=== PATIENT | male | born 1945 | race Caucasian/White ===

== ENCOUNTER 2018-01-07 06:29 | Day surgery (SDC) | payer OTHER, MEDICARE ==
[2018-01-03 11:43] LABS: BASOPHILS # (AUTO) 0.1 X10'3 (0-0.2); BASOPHILS % (AUTO) 1.1 % (0-1); EOSINOPHILS # (AUTO) 0.7 X10'3 (0-0.9); EOSINOPHILS % (AUTO) 7.5 % (0-6); LYMPHOCYTES # (AUTO) 1.8 X10'3 (1.1-4.8); LYMPHOCYTES % (AUTO) 19.7 % (21-51); MEAN CORPUSCULAR HGB CONC 34.6 % (33.0-36.5); MEAN CORPUSCULAR VOLUME 98.3 FL (78-98); MEAN PLATELET VOLUME 7.6 FL (7.4-10.4); MONOCYTES # (AUTO) 1.1 X10'3 (0-0.9); NEUTROPHILS # (AUTO) 5.4 X10'3 (1.8-7.7); NEUTROPHILS % (AUTO) 59.7 % (42-75); PRE OP HEMATOCRIT 37.4 % (42.0-52.0); PRE OP HEMOGLOBIN 12.9 g/dL (14.0-17.9); PRE OP PLATELET COUNT 190 X10'3 (140-440); RED BLOOD COUNT 3.81 X10'6 (4.70-6.10)
[2018-01-03 11:56] LABS: ALBUMIN 3.4 G/DL (3.4-5.0); ALBUMIN/GLOBULIN RATIO 0.9 (1.1-1.5); ALKALINE PHOSPHATASE 66 IU/L (46-116); BLOOD UREA NITROGEN 13 MG/DL (7-18); BUN/CREATININE RATIO 12.4 (5.4-32.0); CALCIUM 8.8 MG/DL (8.5-10.1); CHLORIDE 101 MMOL/L (99-107); CREATININE 1.05 MG/DL (0.60-1.10); PRE OP ALT 56 U/L (30-65); PRE OP ANION GAP 8 (8-16); PRE OP AST 53 U/L (10-37); PRE OP BILIRUB, TOTAL 0.5 MG/DL (0.0-1.0); PRE OP GLUCOSE 119 MG/DL (70-104); PRE OP SODIUM 135 MMOL/L (135-145); TOTAL CARBON DIOXIDE 25.6 MMOL/L (24-32); TOTAL PROTEIN 7.3 G/DL (6.4-8.2); eGFR 70 ML/MIN
[2018-01-07] VITALS (8 sets, daily range): BP systolic 128–144; BP diastolic 52–79
[~2018-01-07] VITALS: Ht 182.9 cm; Wt 134.6 kg
[~2018-01-07 06:29] MED LIST: AMLO10TA PO; ATOR40TA PO; CETI-136 PO; GABA-532 PO; GUAI400T13 PO; INSU100V30 SQ; LANTUS SQ; LIDOcaine 1% (10mg/ml) 2ml vial ONE; LOSA50TA3 PO; METF500T PO; cefazolin/dext.iso 2gm/50ml 50 ML IV ONE; famotidine 20mg tablet PO ONE; ringers solution, lacted 1,000 ML IV SCH
[2018-01-07] MEDS ORDERED: ROPIVAcaine 0.5% (5mg/ml) 30ml vial ONE (06:40)
[2018-01-07] MEDS ORDERED: LIDOcaine 0.5% (5mg/ml) 50ml vial ONE (07:08)
[2018-01-07] MEDS ORDERED: fentaNYL/PF 50MCG/1 ML 2ML syringe ONE ×2 (07:12→07:27)
[2018-01-07] MEDS ORDERED: MIDAZolam 5mg/5ml vial ONE (07:13)
[2018-01-07] MEDS ORDERED: propofol inj 20 ML IV ONE (07:40)
[2018-01-07] MEDS ORDERED: morphine 4 MG/ML inj SYRINge IV PRN (07:50)
[2018-01-07] MEDS ORDERED: HYDROmorphone inj. 0.5 MG/0.5 ML DISP.SYRIN IV PRN ×2 (07:50)
[2018-01-07] MEDS ORDERED: ondansetron/PF 4mg/2ml inj IV PRN (07:50)
[2018-01-07] MEDS ORDERED: ringers solution, lacted 1,000 ML IV SCH (07:50)
[2018-01-07] MEDS ORDERED: morphine /PF 1mg/ml 10ml inj. ONE (08:28)
[2018-01-07] MEDS ORDERED: morphine 10mg/ml inj. ONE (08:28)
[2018-01-07] MEDS ORDERED: HYDROmorphone 1 mg/ml syringe ONE (08:42)
[2018-01-07] MEDS ORDERED: HYDROmorphone 1 mg/ml syringe IV PRN (08:53)
[2018-01-07] MEDS: HYDROmorphone 1 mg/ml syringe IV PRN ×2 (08:57→09:14)
[2018-01-07] MEDS ORDERED: HYDROcodone/acetaminophen 10/325mg tab PO ONE (09:20)
== END 2018-01-07 09:40 | disposition home or self-care (01) ==
LOC: PAS 06:29
PROVIDERS: ATTEND Orthopaedic Surgery Hand Surgery
DX: M72.0 Palmar fascial fibromatosis [Dupuytren] (principal); M19.031 Primary osteoarthritis, right wrist; M65.341 Trigger finger, right ring finger; E66.9 Obesity, unspecified; E11.9 Type 2 diabetes mellitus without complications; I10 Essential (primary) hypertension; G47.33 Obstructive sleep apnea (adult) (pediatric); J44.9 Chronic obstructive pulmonary disease, unspecified; Z79.4 Long term (current) use of insulin; Z68.41 Body mass index [BMI] 40.0-44.9, adult; Z87.442 Personal history of urinary calculi; Z96.651 Presence of right artificial knee joint; Z79.891 Long term (current) use of opiate analgesic; Z79.84 Long term (current) use of oral hypoglycemic drugs; Z87.891 Personal history of nicotine dependence; Z79.899 Other long term (current) drug therapy; Z98.890 Other specified postprocedural states
CPT/HCPCS: 25800; 26055; 26121; 36415; 80053; 82948; 83036; 85025; 93005; A6402; A6449; C1713; J0690; J1170; J2001; J2250; J2270; J2405; J2704; J2795; J3010; J3490; J7120; A7000; J2274

== ENCOUNTER 2018-09-23 09:19 | Day surgery (SDC) | payer OTHER, MEDICARE ==
[2018-09-19 11:33] LABS: BASOPHILS % (AUTO) 0.3 % (0-1); EOSINOPHILS # (AUTO) 0.5 X10'3 (0-0.9); EOSINOPHILS % (AUTO) 5.7 % (0-6); LYMPHOCYTES # (AUTO) 1.4 X10'3 (1.1-4.8); LYMPHOCYTES % (AUTO) 14.4 % (21-51); MEAN CORPUSCULAR HEMOGLOBIN 33.7 PG (27.0-31.0); MEAN CORPUSCULAR HGB CONC 34.2 g/dL (33.0-36.5); MEAN CORPUSCULAR VOLUME 98.5 FL (78-98); MEAN PLATELET VOLUME 8.4 FL (7.4-10.4); MONOCYTES # (AUTO) 0.9 X10'3 (0-0.9); MONOCYTES % (AUTO) 9.9 % (2-12); NEUTROPHILS # (AUTO) 6.5 X10'3 (1.8-7.7); NEUTROPHILS % (AUTO) 69.7 % (42-75); PRE OP HEMATOCRIT 40.7 % (42.0-52.0); PRE OP HEMOGLOBIN 13.9 g/dL (14.0-17.9); PRE OP PLATELET COUNT 149 X10'3 (140-440); RED BLOOD COUNT 4.14 X10'6 (4.70-6.10); RED CELL DISTRIBUTION WIDTH 12.9 % (11.5-14.5)
[2018-09-19 11:35] LABS: HEMOGLOBIN A1C 6.6 % (4.5-6.2)
[2018-09-19 11:41] LABS: ALBUMIN 3.3 G/DL (3.4-5.0); ALBUMIN/GLOBULIN RATIO 0.9 (1.1-1.5); ALKALINE PHOSPHATASE 77 IU/L (46-116); BLOOD UREA NITROGEN 7 MG/DL (7-18); BUN/CREATININE RATIO 7.8 (5.4-32.0); CALCIUM 9.4 MG/DL (8.5-10.1); CHLORIDE 102 MMOL/L (99-107); PRE OP ALT 40 U/L (30-65); PRE OP ANION GAP 8 (8-16); PRE OP AST 28 U/L (10-37); PRE OP BILIRUB, TOTAL 0.6 MG/DL (0.0-1.0); PRE OP GLUCOSE 164 MG/DL (70-104); PRE OP POTASSIUM 4.1 MMOL/L (3.4-5.1); PRE OP SODIUM 139 MMOL/L (135-145); TOTAL CARBON DIOXIDE 28.9 MMOL/L (24-32); TOTAL PROTEIN 6.8 G/DL (6.4-8.2); eGFR 83 ML/MIN
[~2018-09-23] VITALS: Ht 182.9 cm; Wt 117.9 kg
[2018-09-23] VITALS (11 sets, daily range): BP systolic 145–179; BP diastolic 64–92
[~2018-09-23 09:19] MED LIST changes: +ALOG6.252 PO; -AMLO10TA PO; +BUPIVAcaine/PF 2.5mg/ml (0.25%) 10ml vial ONE; +HYDR-3972 PO; -INSU100V30 SQ; -LANTUS SQ; -LIDOcaine 1% (10mg/ml) 2ml vial ONE; -LOSA50TA3 PO; -METF500T PO; +ceFAZolin 2gm in dextrose, iso 100 ML IV ONE; -cefazolin/dext.iso 2gm/50ml 50 ML IV ONE
[2018-09-23] MEDS ORDERED: LIDOcaine 0.5% (5mg/ml) 50ml vial ONE (11:38)
[2018-09-23] MEDS ORDERED: fentaNYL /PF 50mcg/ml 5ml ampule ONE (11:40)
[2018-09-23] MEDS ORDERED: midazolam 2 mg/2 ml injection ONE ×2 (11:40→11:51)
--- NOTE | 2018-09-23 11:41 | NUR ---
pt has rash and pin pricks from a plant at his house, dr clark looked at it, will proceed with surgery. (rash on arms/hands bilat)
[2018-09-23] MEDS ORDERED: labetalol 20mg/4ml (5mg/ml) syringe IV ONE (12:07)
[2018-09-23] MEDS ORDERED: LIDOcaine 1%/PF 5ML 10 MG/ML VIAL ONE (12:07)
[2018-09-23] MEDS ORDERED: hydrALAZINE 20mg/ml inj. IV ONE (12:07)
[2018-09-23] MEDS ORDERED: propofol inj 20 ML IV ONE (12:07)
[2018-09-23] MEDS ORDERED: ondansetron/PF 4mg/2ml inj ONE (12:40)
[2018-09-23] MEDS ORDERED: ROPIVAcaine 0.5% (5mg/ml) 30ml vial ONE (12:43)
--- NOTE | 2018-09-23 12:53 | NUR ---
Received from OR via [facility], accompanied by Anesthesiologist DR SY and report given by Anesthesiologist. PT VERY DROWSY, NO S/S OF DISTRESS/DISCOMFORT. 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 Addendum: 09/23/18 at 1322 by Alice Christopher RN Amended: Links added.
[2018-09-23] MEDS ORDERED: ringers solution, lacted 1,000 ML IV SCH (13:11)
[2018-09-23] MEDS ORDERED: morphine 4 MG/ML inj SYRINge IV PRN (13:15)
[2018-09-23] MEDS ORDERED: ondansetron/PF 4mg/2ml inj IV PRN (13:15)
[2018-09-23] MEDS ORDERED: HYDROmorphone inj. 0.5 MG/0.5 ML DISP.SYRIN IV PRN ×2 (13:15)
== END 2018-09-23 14:33 | disposition home or self-care (01) ==
LOC: PAS 09:19
PROVIDERS: ATTEND Orthopaedic Surgery Hand Surgery
DX: T84.290A Other mechanical complication of internal fixation device of bones of hand and fingers, initial encounter (principal); M19.031 Primary osteoarthritis, right wrist; E66.9 Obesity, unspecified; E11.9 Type 2 diabetes mellitus without complications; Z98.890 Other specified postprocedural states; Z79.4 Long term (current) use of insulin; Y83.8 Other surgical procedures as the cause of abnormal reaction of the patient, or of later complication, without mention of misadventure at the time of the procedure
CPT/HCPCS: 25820; 36415; 80053; 82948; 83036; 85025; 93005; C1713; J0360; J0690; J1170; J2001; J2250; J2405; J2704; J3010; J3490; J7120; A6449; A7000; J2795

== ENCOUNTER 2019-09-10 11:12 | Emergency (ER) | payer MEDICARE, OTHER ==
[~2019-09-10] VITALS: Ht 182.9 cm; Wt 107.7 kg
[~2019-09-10 11:12] MED LIST changes: -BUPIVAcaine/PF 2.5mg/ml (0.25%) 10ml vial ONE; -ceFAZolin 2gm in dextrose, iso 100 ML IV ONE; -famotidine 20mg tablet PO ONE; -ringers solution, lacted 1,000 ML IV SCH
[2019-09-10] MEDS ORDERED: diphenhydrAMINE 50 mg/ml inj IM ONE (11:25)
[2019-09-10] MEDS ORDERED: haloperidol lactate 5mg/ml inj IM ONE (11:25)
[2019-09-10] MEDS ORDERED: LORazepam 2 mg/ml vial IM ONE (11:25)
--- NOTE | 2019-09-10 11:34 | NUR ---
Patient's behavior is agressive and unpredictable. Patient continues to be verbally agressive and is unable to calm down despite all best attempts to verbally de-escalate him. Addendum: 09/10/19 at 1853 by [facility] Tech had said to be watching him the whole time he went to restroom waiting for him to him come out of the restroom.
--- NOTE | 2019-09-10 11:46 | NUR ---
Spoke with pts , Loni on the phone. States pt is a daily drinker and has been combative at home, throwing things and threatening to hit her. Pt still making verbal threats to staff at this time and striking out. Dr. Renteria at bedside. Locked restraints placed x 4. Security at bedside.
[2019-09-10] MEDS ORDERED: normal saline 1000ML IV soln IVB ONE (11:50)
[2019-09-10] MEDS ORDERED: LORazepam 2 mg/ml vial IV ONE (11:50)
[2019-09-10] MEDS ORDERED: OXYC-511 PO (11:56)
[2019-09-10] MEDS ORDERED: MIDO2.5T14 PO (12:00)
[2019-09-10] MEDS ORDERED: POTA20TA19 PO (12:00)
[2019-09-10] MEDS ORDERED: INSU100I25 (12:00)
[2019-09-10 12:35] LABS: BASOPHILS # (AUTO) 0.1 X10'3 (0-0.2); BASOPHILS % (AUTO) 0.8 % (0-1); EOSINOPHILS # (AUTO) 0.1 X10'3 (0-0.9); EOSINOPHILS % (AUTO) 0.9 % (0-6); HEMATOCRIT 40.9 % (42.0-52.0); HEMOGLOBIN 13.7 g/dl (14.0-17.9); LYMPHOCYTES # (AUTO) 3.3 X10'3 (1.1-4.8); LYMPHOCYTES % (AUTO) 27.8 % (21-51); MEAN CORPUSCULAR HEMOGLOBIN 34.6 PG (27.0-31.0); MEAN CORPUSCULAR HGB CONC 33.4 g/dL (33.0-36.5); MEAN CORPUSCULAR VOLUME 103.5 FL (78-98); MEAN PLATELET VOLUME 7.1 FL (7.4-10.4); MONOCYTES % (AUTO) 8.7 % (2-12); NEUTROPHILS # (AUTO) 7.3 X10'3 (1.8-7.7); NEUTROPHILS % (AUTO) 61.8 % (42-75); PLATELET COUNT 266 X10'3 (140-440); RED BLOOD COUNT 3.95 X10'6 (4.70-6.10); RED CELL DISTRIBUTION WIDTH 15.3 % (11.5-14.5); WHITE BLOOD COUNT 11.8 X10'3 (4.5-11.0)
[2019-09-10 12:48] LABS: ALANINE AMINOTRANSFERASE 28 U/L (12-78); ALBUMIN 3.1 G/DL (3.4-5.0); ALBUMIN/GLOBULIN RATIO 0.8 (1.1-1.5); ALKALINE PHOSPHATASE 109 IU/L (46-116); ANION GAP 16 (8-16); ASPARTATE AMINO TRANSFERASE 55 U/L (10-37); BILIRUBIN,TOTAL 0.3 MG/DL (0.1-1.0); BLOOD UREA NITROGEN 17 MG/DL (7-18); BUN/CREATININE RATIO 13.3 (5.4-32.0); CALCIUM 8.6 MG/DL (8.5-10.1); CHLORIDE 103 MMOL/L (99-107); CREATININE 1.28 MG/DL (0.60-1.10); GLUCOSE 115 MG/DL (70-104); POTASSIUM 3.6 MMOL/L (3.5-5.1); SODIUM 142 MMOL/L (135-145); TOTAL CARBON DIOXIDE 22.9 MMOL/L (24-32); TOTAL PROTEIN 6.8 G/DL (6.4-8.2); eGFR 55 ML/MIN
[2019-09-10] MEDS: ALOGLIPTIN BENZOATE 6.25 MG PO SCH (12:50)
[2019-09-10] MEDS ORDERED: guaiFENesin 200 MG/10 ML oral syrup UD cup PO PRN (12:50)
[2019-09-10 12:56] LABS: CREATINE KINASE 125 U/L (39-308); ETHANOL 0.246 GM/DL (0.0-0.010)
[2019-09-10 12:57] LABS: ACETAMINOPHEN < 2.0 UG/ML (10-30)
[2019-09-10] MEDS: midodrine tablet 2.5 MG TABLET PO SCH ×2 (13:00→21:13)
[2019-09-10 13:13] LABS: CLARITY,URINE CLEAR (Clear); COLOR,URINE YELLOW (Yellow); GLUCOSE, URINE NEGATIVE (Neg); KETONES,URINE NEGATIVE (Neg); LEUKOCYTE ESTERASE ,URINE NEGATIVE (Neg); NITRITES, URINE NEGATIVE (Neg); OCCULT BLOOD,URINE NEGATIVE (Neg); PROTEIN,URINE NEGATIVE (Neg); UROBILINOGEN,URINE 0.2 E.U/dL (0.2-1.0)
[2019-09-10 13:16] LABS: UA COLLECTION TYPE STRAIGHT CATH
[2019-09-10 13:26] LABS: URINE AMPHETAMINE SCREEN NEGATIVE (Neg); URINE BARBITUATE SCREEN NEGATIVE (Neg); URINE BENZODIAZEPINES SCREEN NEGATIVE (Neg); URINE CANNABINOID SCREEN POSITIVE (Neg); URINE COCAINE SCREEN NEGATIVE (Neg); URINE METHADONE SCREEN NEGATIVE (Neg); URINE OPIATE SCREEN POSITIVE (Neg); URINE PHENCYCLIDINE SCREEN NEGATIVE (Neg)
--- NOTE | 2019-09-10 13:32 | NUR ---
relieving RN for break, pt is sleeping, resp even and unlabored,
--- NOTE | 2019-09-10 15:14 | NUR ---
PACKET FAXED TO [facility]
--- NOTE | 2019-09-10 16:04 | NUR ---
sleeping on right side
[2019-09-10] MEDS: gabapentin 300mg capsule PO SCH (16:08)
--- NOTE | 2019-09-10 17:23 | NUR ---
Patient ran across the room. Security called to help him back in bed. Fell when going to transfer back down to bed. PA notified no new orders no injuries noted.
--- NOTE | 2019-09-10 18:08 | NUR ---
in bed resting
--- NOTE | 2019-09-10 18:55 | NUR ---
Patient found outside by staff. Patient was last seen by the staff in the restroom at around 1819, at around the 1819 the patient in 24 came near the station was talking to the staff for 5-10 minutes. Patient was still beleived to using the restroom, he not seen coming out of the restroom. Later security came back with the patient at around 1826. Shelbie said she was watching patient from the monement he entered the restroom and was watching the area waiting for him to finish up and come out.
[2019-09-10] MEDS: oxyCODONE/APAP 10/325mg tablet PO PRN (19:28)
[2019-09-10] MEDS ORDERED: haloperidol 5mg tablet PO ONE (22:40)
[2019-09-10] MEDS ORDERED: LORazepam 1 MG tablet PO ONE (22:40)
[2019-09-10] MEDS ORDERED: diphenhydrAMINE 25mg capsule PO ONE (22:40)
--- NOTE | 2019-09-10 22:42 | NUR ---
Patient is awake, he exhibits anxiety and some agitation. Patient is requesting medications for that and sleep too. Neil Olivares is speaking with for orders.
--- NOTE | 2019-09-10 22:42 | NUR ---
Patient has been restless and is becoming more agitated. He shouts, "Wheres my fuckin' sleep aid? He told me he would get it earlier?" Spoke to Dr. Encarnacion regarding patient and condition. PO medications ordered. Spoke to primary RN Marvin about discussion with Dr. Encarnacion.
[2019-09-11] MEDS: LORazepam 1 MG tablet PO SCH ×2 (00:29→09:43)
[2019-09-11] MEDS: gabapentin 300mg capsule PO SCH ×2 (00:30→09:43)
[2019-09-11] MEDS ORDERED: diphenhydrAMINE 25mg capsule PO ONE (00:35)
--- NOTE | 2019-09-11 01:19 | NUR ---
relieving RN for break, pt is resting quietly on gurney
--- NOTE | 2019-09-11 02:19 | NUR ---
Patient is sleping quietly now in a low fowlers position in bed.
[2019-09-11] MEDS: oxyCODONE/APAP 10/325mg tablet PO PRN ×2 (03:52→13:14)
--- NOTE | 2019-09-11 03:57 | NUR ---
patient awoke. c/o headache, requested his percosed. patient required a scrub top change from sweating. Patients water container is refilled. patient given po percoset is given. patient returns to sleep.
--- NOTE | 2019-09-11 03:59 | NUR ---
Patient awakens, states she wants to leave. Patient is reoriented to 5150 hold, she is then redirected to sleep. Patient rolls over to her right side and goes to sleep.
--- NOTE | 2019-09-11 05:27 | NUR ---
Patient is sleeping quietly on his left side.
--- NOTE | 2019-09-11 07:30 | NUR ---
UP TO BATHROOM AND THEN BACK TO BED. COOPERATIVE WITH CARE. NO NEEDS AT THIS TIME.
[2019-09-11] MEDS ORDERED: potassium Cl 20 mEq SR tablet PO SCH (08:00)
[2019-09-11] MEDS ORDERED: atorvastatin 20mg tablet PO SCH (08:00)
[2019-09-11] MEDS ORDERED: cetirizine 10mg tablet PO SCH (08:00)
[2019-09-11] MEDS: ALOGLIPTIN BENZOATE 6.25 MG PO SCH (08:00)
--- NOTE | 2019-09-11 08:55 | NUR ---
CALLED FOR CONDITION REPORT. CELL PHONE NUMBER IS [phone]
[2019-09-11] MEDS: midodrine tablet 2.5 MG TABLET PO SCH ×2 (09:43→13:00)
--- NOTE | 2019-09-11 11:00 | NUR ---
PATIENT WENT TO CT SCAN PER WC.
--- NOTE | 2019-09-11 11:15 | NUR ---
RETURNED FROM CT SCAN PER WC AND RETURNED TO BED. DOZING IN STABLE CONDITION.
[2019-09-11 14:01] VITALS: BP 134/53
== END 2019-09-11 13:58 | disposition home or self-care (01) ==
LOC: ER 11:12
DX: F10.129 Alcohol abuse with intoxication, unspecified (principal); F32.9 Major depressive disorder, single episode, unspecified; E78.00 Pure hypercholesterolemia, unspecified; I10 Essential (primary) hypertension; J44.9 Chronic obstructive pulmonary disease, unspecified; E11.9 Type 2 diabetes mellitus without complications; Z72.89 Other problems related to lifestyle; Z79.899 Other long term (current) drug therapy
CPT/HCPCS: 36415; 70450; 80053; 80305; 80320; 80329; 81003; 82550; 82948; 84443; 85025; 96372; 96374; 99291; J1200; J1630; J2060; J7030; Q0163

== ENCOUNTER 2021-12-24 08:05 | Emergency (ER) | payer OTHER, MEDICARE ==
[~2021-12-24] VITALS: Ht 182.9 cm; Wt 96.4 kg
[~2021-12-24 08:05] MED LIST changes: -HYDR-3972 PO; +INSU100I25; +MIDO2.5T14 PO; +OXYC1TAB17 PO; +POTA-207 PO
--- NOTE | 2021-12-24 09:17 | NUR ---
Pt d/c home via ambulatory in good condition, instructions given, pt verbalized understanding.
[2021-12-24 09:19] VITALS: BP 111/74
== END 2021-12-24 09:22 | disposition home or self-care (01) ==
LOC: ER 08:06
DX: T81.89XA Other complications of procedures, not elsewhere classified, initial encounter (principal); M79.642 Pain in left hand; E78.5 Hyperlipidemia, unspecified; I10 Essential (primary) hypertension; J44.9 Chronic obstructive pulmonary disease, unspecified; G47.30 Sleep apnea, unspecified; E11.9 Type 2 diabetes mellitus without complications; Z72.89 Other problems related to lifestyle; Z18.9 Retained foreign body fragments, unspecified material; Z79.899 Other long term (current) drug therapy; Y83.8 Other surgical procedures as the cause of abnormal reaction of the patient, or of later complication, without mention of misadventure at the time of the procedure; Y92.89 Other specified places as the place of occurrence of the external cause
CPT/HCPCS: 99281

== ENCOUNTER 2021-12-27 12:29 | Emergency (ER) | payer OTHER, MEDICARE ==
[~2021-12-27] VITALS: Ht 182.9 cm; Wt 97.7 kg
[2021-12-27 15:31] LABS: BASOPHILS % (AUTO) 0.6 % (0-1); EOSINOPHILS # (AUTO) 0.7 X10'3 (0-0.9); EOSINOPHILS % (AUTO) 7.9 % (0-6); HEMATOCRIT 49.3 % (42.0-52.0); HEMOGLOBIN 17.1 g/dl (14.0-17.9); LYMPHOCYTES # (AUTO) 2.7 X10'3 (1.1-4.8); LYMPHOCYTES % (AUTO) 32.2 % (21-51); MEAN CORPUSCULAR HGB CONC 34.6 g/dL (33.0-36.5); MEAN CORPUSCULAR VOLUME 98.4 FL (78-98); MEAN PLATELET VOLUME 7.9 FL (7.4-10.4); MONOCYTES # (AUTO) 0.7 X10'3 (0-0.9); MONOCYTES % (AUTO) 8.3 % (2-12); NEUTROPHILS # (AUTO) 4.3 X10'3 (1.8-7.7); PLATELET COUNT 204 X10'3 (140-440); RED BLOOD COUNT 5.01 X10'6 (4.70-6.10); RED CELL DISTRIBUTION WIDTH 14.6 % (11.5-14.5); WHITE BLOOD COUNT 8.4 X10'3 (4.5-11.0)
[2021-12-27 15:39] LABS: ALANINE AMINOTRANSFERASE 50 U/L (12-78); ALBUMIN 3.5 G/DL (3.4-5.0); ALBUMIN/GLOBULIN RATIO 0.9 (1.1-1.5); ALKALINE PHOSPHATASE 104 IU/L (46-116); ANION GAP 8 (8-16); ASPARTATE AMINO TRANSFERASE 32 U/L (10-37); BILIRUBIN,TOTAL 0.3 MG/DL (0.1-1.0); BLOOD UREA NITROGEN 19 MG/DL (7-18); BUN/CREATININE RATIO 22.4 (5.4-32.0); CALCIUM 8.6 MG/DL (8.5-10.1); CHLORIDE 99 MMOL/L (99-107); CREATININE 0.85 MG/DL (0.60-1.10); GLUCOSE 80 MG/DL (70-104); POTASSIUM 3.9 MMOL/L (3.5-5.1); SODIUM 137 MMOL/L (135-145); TOTAL CARBON DIOXIDE 30.4 MMOL/L (24-32); TOTAL PROTEIN 7.5 G/DL (6.4-8.2); eGFR 88 ML/MIN
[2021-12-27 15:50] LABS: ETHANOL 0.053 GM/DL (0.0-0.010)
[2021-12-27 16:19] LABS: CLARITY,URINE CLEAR (Clear); COLOR,URINE YELLOW (Yellow); GLUCOSE, URINE >=1000 mg/dl (Neg); KETONES,URINE NEGATIVE (Neg); LEUKOCYTE ESTERASE ,URINE NEGATIVE (Neg); NITRITES, URINE NEGATIVE (Neg); OCCULT BLOOD,URINE NEGATIVE (Neg); PH,URINE 5.5 (4.8-8.0); PROTEIN,URINE NEGATIVE (Neg); UROBILINOGEN,URINE 0.2 E.U/dL (0.2-1.0)
[2021-12-27 16:25] LABS: URINE AMPHETAMINE SCREEN NEGATIVE (Neg); URINE BARBITUATE SCREEN NEGATIVE (Neg); URINE BENZODIAZEPINES SCREEN NEGATIVE (Neg); URINE CANNABINOID SCREEN NEGATIVE (Neg); URINE COCAINE SCREEN NEGATIVE (Neg); URINE METHADONE SCREEN NEGATIVE (Neg); URINE OPIATE SCREEN POSITIVE (Neg); URINE PHENCYCLIDINE SCREEN NEGATIVE (Neg)
[2021-12-27 16:27] LABS: UA COLLECTION TYPE CLN CATCH MIDSTREAM
[2021-12-27 16:28] LABS: SQUAMOUS EPITHELIAL CELL,UR FEW /LPF (FEW)
[2021-12-27 16:30] LABS: BACTERIA,URINE FEW /HPF (Neg); RBC,URINE 0-2 /HPF (0-2); WBC,URINE 0-4 /HPF (0-4)
--- NOTE | 2021-12-27 17:25 | NUR ---
Pt brought back to ED overflow bed 23 from ED room 7.
--- NOTE | 2021-12-27 17:55 | NUR ---
Pt tried to leave hospital as pt bored, pt states "going out of his mind, there is nothing to do". Pt was talked into coming back to room, activities being offered.
[2021-12-27] MEDS ORDERED: LORazepam 2 mg/ml vial IM ONE (18:00)
[2021-12-27] MEDS ORDERED: gabapentin 400mg capsule PO STA (18:04)
--- NOTE | 2021-12-27 18:05 | NUR ---
Spoke with pts , reports pt normally drinks 1.75 ml of Vodka daily and last known drink was around 4 am.
--- NOTE | 2021-12-27 18:26 | NUR ---
Tech sent out packet to [facility].
--- NOTE | 2021-12-27 19:37 | NUR ---
The patient is currently resting on his bed and watching TV. He was pleasant during the evening assessment. He is hard of hearing but had little difficulty answering questions. He stated that over the last several days of going to doctor appointments and not receiving the care he believed he needed he became suicidal. He stated that he is having pain in his left hand and believes he needs to have old sutures cut out. He stated he required a rx for norco or percocet which he was not given. He also states she has been drinking to deal with the pain. He has a history of gastric bypass. He denies problems with sleep at home. He appears to resting comfortably at this time.
[2021-12-27] MEDS: gabapentin 300mg capsule PO SCH (21:39)
--- NOTE | 2021-12-27 21:41 | NUR ---
The patient attempting to go to sleep. He was given HS dose of Gabapentin.
[2021-12-27] MEDS ORDERED: traZODone 50mg tablet PO ONE (22:05)
--- NOTE | 2021-12-27 23:08 | NUR ---
The patient appears to be sleeping
--- NOTE | 2021-12-28 00:14 | NUR ---
The patient appears to be sleeping
--- NOTE | 2021-12-28 01:04 | NUR ---
The patient appears to be sleeping
--- NOTE | 2021-12-28 01:50 | NUR ---
The patient appears to be sleeping
--- NOTE | 2021-12-28 02:48 | NUR ---
The patient appears to be sleeping
--- NOTE | 2021-12-28 04:34 | NUR ---
The patient appears to be sleeping
--- NOTE | 2021-12-28 05:02 | NUR ---
THe patient appeared to have slept okay during the night.
--- NOTE | 2021-12-28 06:01 | NUR ---
Patient up and standing in front of bed, demanding his Neurontin. ALPHONSO Woody has told him multiple times that it is not scheduled until 0800, but he continues to be demanding. He was asked to go back to his bed and he refused, cusing at everyone. Security was in Overflow and talked with him.
[2021-12-28] MEDS ORDERED: diphenhydrAMINE 50 mg/ml inj IM ONE (07:10)
[2021-12-28] MEDS ORDERED: haloperidol lactate 5mg/ml inj IM ONE (07:10)
[2021-12-28] MEDS ORDERED: LORazepam 2 mg/ml vial IM ONE (07:10)
[2021-12-28] MEDS: gabapentin 300mg capsule PO SCH ×3 (07:34→20:31)
[2021-12-28] MEDS: atorvastatin 20mg tablet PO SCH (07:35)
[2021-12-28] MEDS: linagliptin 5mg tablet PO SCH ×2 (08:00→09:10)
--- NOTE | 2021-12-28 08:03 | NUR ---
4 POINT RESTRAINTS REMOVED AT 0630.
--- NOTE | 2021-12-28 08:41 | NUR ---
pt sleeping quietly
[2021-12-28] MEDS ORDERED: BUPR150F3 PO (08:49)
--- NOTE | 2021-12-28 10:52 | NUR ---
ernestine called, to see how is doing. let her know he has been appro and calm. sleeping most of morning. did wake to eat breakfast
--- NOTE | 2021-12-28 12:40 | NUR ---
ernestine called [phone]. ask to come visit. pt is sleeping at this time and would appreciate if we could call her when pt wakes up.
--- NOTE | 2021-12-28 14:42 | NUR ---
RESTING IN BED AT THIS TIME, NO DISTRESS NOTED
--- NOTE | 2021-12-29 06:19 | NUR ---
FAX COVID RESULT TO [facility] [id number] [facility] FAX #[phone]
[2021-12-29] MEDS: gabapentin 300mg capsule PO SCH ×3 (08:26→20:08)
[2021-12-29] MEDS: linagliptin 5mg tablet PO SCH (08:26)
[2021-12-29] MEDS: atorvastatin 20mg tablet PO SCH (08:26)
--- NOTE | 2021-12-29 10:26 | NUR ---
Pt recieved call from [facility]. Pt resting in bed at this time. No signs or symptoms of distress noted. Will continue to monitor.
--- NOTE | 2021-12-29 11:56 | NUR ---
Pt is visiting with . No signs or symptoms of distress noted. Will continue to monitor.
--- NOTE | 2021-12-29 13:09 | NUR ---
Pt in bed resting with eyes open. No signs or symptoms of distress noted. Respirations are even and unlabored. Will continue to monitor.
--- NOTE | 2021-12-29 14:00 | NUR ---
Pt sitting in bed talking with another pt. Respirations appear even and unlabored. No signs or symptoms of distress noted. Will continue to monitor.
--- NOTE | 2021-12-29 15:22 | NUR ---
Pt is sitting up in bed reading magazine. Pt seems to be in good spirits and is showing staff pictures of rainbow trout. No signs or symptoms of distress noted at this time. Respirations appear even and unlabored. Will continue to monitor.
--- NOTE | 2021-12-29 16:07 | NUR ---
Pt is currently in bed resting with eyes open. Respirations are even and unlabored. No signs or symptoms of distress noted. Will continue to monitor.
--- NOTE | 2021-12-29 18:40 | NUR ---
Pt is currently in bed watching television. Respirations appear even and unlabored. No signs or symptoms of distress noted. Will continue to monitor.
--- NOTE | 2021-12-29 19:48 | NUR ---
Pt is in bed watching television. Respirations appear even and unlabored. No signs or symptoms of distress noted. Will continue to monitor.
--- NOTE | 2021-12-29 20:39 | NUR ---
Pt is on the phone with . Respirations appear unlabored and even. No signs or symptoms of distress noted. Will continue to monitor.
[2021-12-29] MEDS ORDERED: acetaminophen 325mg tablet PO PRN (20:40)
--- NOTE | 2021-12-29 22:19 | NUR ---
Patient resting in bed, in line of sight of staff, watching TV, expresses no need at this time
--- NOTE | 2021-12-29 23:17 | NUR ---
Patient resting in bed with eyes in line of sight of staff
--- NOTE | 2021-12-29 23:59 | NUR ---
Patient resting in bed in lines of sight of staff
--- NOTE | 2021-12-30 | NUR ---
Received communication at 5169 that patient has been accepted to [facility] pending transportation later in the AM. Transportation to facility later in the morning,to be arranged by sending facility -[facility].
--- NOTE | 2021-12-30 01:04 | NUR ---
Patient awake, quietly watching TV
--- NOTE | 2021-12-30 02:21 | NUR ---
Patient resting quietly in bed in lines of sight of all staff.
--- NOTE | 2021-12-30 03:29 | NUR ---
Patient resting quietly in bed.
--- NOTE | 2021-12-30 04:46 | NUR ---
Patient resting in bed quietly in line of sight of staff
--- NOTE | 2021-12-30 05:43 | NUR ---
Patient resting quietly in bed in line of sight of staff
[2021-12-30] MEDS: gabapentin 300mg capsule PO SCH ×3 (07:30→20:51)
[2021-12-30] MEDS: atorvastatin 20mg tablet PO SCH (07:30)
[2021-12-30] MEDS: linagliptin 5mg tablet PO SCH (08:01)
--- NOTE | 2021-12-30 08:34 | NUR ---
Spoke with [facility] office regarding need for transportation to [facility].
--- NOTE | 2021-12-30 09:46 | NUR ---
Report given to ALPHONSO Choudhury at [facility].
--- NOTE | 2021-12-30 10:03 | NUR ---
Pt is up at a desk working on a puzzle.
--- NOTE | 2021-12-30 11:30 | NUR ---
[facility] office requeted Covid-19 PCR test results prior to transfer. Results faxed.
--- NOTE | 2021-12-30 13:44 | NUR ---
Spoke with [facility] office. [facility] will not take pt because his hold expires tomorrow. Flori asked that we renew the hold. [facility] stated that they will seek placement elsewhere.
[2021-12-30] MEDS ORDERED: HYDROcodone/acetaminophen 5mg/325mg tablet PO ONE (17:00)
--- NOTE | 2021-12-30 19:02 | NUR ---
The patient is calm, laughing and socializing with peers and staff.
--- NOTE | 2021-12-30 20:41 | NUR ---
The patient is watching TV. He has does not appear depressed or anxious.
--- NOTE | 2021-12-30 22:28 | NUR ---
The patient appears to be sleeping
--- NOTE | 2021-12-31 00:04 | NUR ---
The patient appears to be sleeping. Was up briefly to use the bathroom but then right back to bed.
--- NOTE | 2021-12-31 02:09 | NUR ---
The patient appears to be sleeping
--- NOTE | 2021-12-31 03:24 | NUR ---
The patient appears to be sleeping
[2021-12-31 06:03] VITALS: BP 121/64
--- NOTE | 2021-12-31 06:36 | NUR ---
Patient reclining in bed awake. Patient came up to the nurses station and wanted to use the phone. RN advised patient that the phone can't be used until 0800 because we don't want the other patient's to be awakened or disturbed. Patient verbalized understanding. Continue to monitor.
--- NOTE | 2021-12-31 08:03 | NUR ---
Patient on the phone speaking to his . No distress observed. Continue to monitor.
[2021-12-31] MEDS: linagliptin 5mg tablet PO SCH (08:16)
[2021-12-31] MEDS: atorvastatin 20mg tablet PO SCH (08:16)
[2021-12-31] MEDS: gabapentin 300mg capsule PO SCH ×2 (08:16→13:20)
--- NOTE | 2021-12-31 08:53 | NUR ---
Patient in the BR freshening up. No distress observed at this time. Continue to monitor.
--- NOTE | 2021-12-31 10:22 | NUR ---
Patient asking for the T.V. No distress oberved. Will give the patient the T.V. if the pediatric patient does not want to watch. Continue to monitor.
--- NOTE | 2021-12-31 12:12 | NUR ---
Patient eating lunch. No distress observed. Continue to monitor.
== END 2021-12-31 14:36 | disposition home or self-care (01) ==
LOC: ER 12:30
DX: R45.851 Suicidal ideations (principal); Z20.822 Contact with and (suspected) exposure to COVID-19; F32.A Depression, unspecified; M79.642 Pain in left hand; R45.1 Restlessness and agitation; E78.00 Pure hypercholesterolemia, unspecified; I10 Essential (primary) hypertension; J44.9 Chronic obstructive pulmonary disease, unspecified; G47.30 Sleep apnea, unspecified; E11.9 Type 2 diabetes mellitus without complications; Z72.89 Other problems related to lifestyle; Z79.899 Other long term (current) drug therapy
CPT/HCPCS: 36415; 80053; 80305; 80320; 81001; 82948; 84443; 85025; 87635; 87811; 96372; 99285; C9803; J1200; J1630; J2060

== ENCOUNTER 2022-07-31 20:23 | Emergency (ER) | payer OTHER, MEDICARE ==
[~2022-07-31] VITALS: Ht 183.5 cm; Wt 95.5 kg
[~2022-07-31 20:23] MED LIST changes: +BUPR150F3 PO; -CETI-136 PO; -GUAI400T13 PO; -INSU100I25; -OXYC1TAB17 PO; -POTA-207 PO
--- NOTE | 2022-07-31 20:50 | NUR ---
PT got mad and left
--- NOTE | 2022-07-31 21:23 | NUR ---
pt back in the lobby, alerted by security. Pt taken to bed 16.
[2022-07-31 21:42] LABS: BASOPHILS # (AUTO) 0.1 X10'3 (0-0.2); BASOPHILS % (AUTO) 0.7 % (0-1); EOSINOPHILS # (AUTO) 0.6 X10'3 (0-0.9); EOSINOPHILS % (AUTO) 5.1 % (0-6); HEMATOCRIT 49.3 % (42.0-52.0); HEMOGLOBIN 16.9 g/dl (14.0-17.9); LYMPHOCYTES # (AUTO) 3.6 X10'3 (1.1-4.8); LYMPHOCYTES % (AUTO) 32.8 % (21-51); MEAN CORPUSCULAR HEMOGLOBIN 34.1 PG (27.0-31.0); MEAN CORPUSCULAR HGB CONC 34.4 g/dL (33.0-36.5); MEAN CORPUSCULAR VOLUME 99.3 FL (78-98); MONOCYTES # (AUTO) 1.3 X10'3 (0-0.9); MONOCYTES % (AUTO) 11.4 % (2-12); NEUTROPHILS # (AUTO) 5.5 X10'3 (1.8-7.7); PLATELET COUNT 170 X10'3 (140-440); RED BLOOD COUNT 4.96 X10'6 (4.70-6.10)
[2022-07-31 21:51] LABS: ANION GAP 8 (8-16); BILIRUBIN,TOTAL 0.3 MG/DL (0.1-1.0); BLOOD UREA NITROGEN 17 MG/DL (7-18); BUN/CREATININE RATIO 20.2 (5.4-32.0); CALCIUM 9.2 MG/DL (8.5-10.1); CHLORIDE 105 MMOL/L (99-107); CREATININE 0.84 MG/DL (0.60-1.10); GLUCOSE 104 MG/DL (70-104); POTASSIUM 4.2 MMOL/L (3.5-5.1); SODIUM 145 MMOL/L (135-145); TOTAL CARBON DIOXIDE 31.6 MMOL/L (24-32); TOTAL PROTEIN 7.7 G/DL (6.4-8.2); eGFR 89 ML/MIN
[2022-07-31 21:52] LABS: ALANINE AMINOTRANSFERASE 33 U/L (12-78); ALBUMIN 3.8 G/DL (3.4-5.0); ALKALINE PHOSPHATASE 100 IU/L (46-116); ASPARTATE AMINO TRANSFERASE 25 U/L (10-37); ETHANOL 0.219 GM/DL (0.0-0.010)
[2022-07-31] MEDS ORDERED: normal saline 1000ml 1,000 ML IV ONE (22:15)
[2022-07-31 23:13] VITALS: BP 124/84
--- NOTE | 2022-07-31 23:30 | NUR ---
[id number] PROVIDER NOTIFIED UNABLE TO ACCESS PIV SITE. PT AGREED TO TAKE ORAL PO FLUIDS. PROVIDER ACKNOWLEDGED THIS WOULD BE OKAY. PT AMBULATED AROUND UNIT STEADY GAIT WITH SBA PROVIDER WITNESSED. PT AWARE DC PENDING.
--- NOTE | 2022-08-01 00:10 | NUR ---
Patient discharged after evaluation by Provider. Pt was able to walk steadily without assistance and had no N/V. Pt ambulated out of ER to Lobby to await ride from spouse
== END 2022-08-01 00:14 | disposition home or self-care (01) ==
LOC: ER 20:23
DX: F10.129 Alcohol abuse with intoxication, unspecified (principal); I10 Essential (primary) hypertension; E78.00 Pure hypercholesterolemia, unspecified; J44.9 Chronic obstructive pulmonary disease, unspecified; E11.9 Type 2 diabetes mellitus without complications; W19.XXXA Unspecified fall, initial encounter; Y93.89 Activity, other specified; Y92.89 Other specified places as the place of occurrence of the external cause; Y99.8 Other external cause status; Y90.9 Presence of alcohol in blood, level not specified
CPT/HCPCS: 36415; 70450; 72125; 80053; 80320; 82140; 85025; 99284; J7030